=== PATIENT | female | born 1995 | race Caucasian/White ===

== ENCOUNTER 2020-11-02 10:35 | Outpatient (CLI) | payer OTHER ==
[~2020-11-02] VITALS: Ht 172.7 cm; Wt 124.1 kg
--- NOTE | 2020-11-02 10:40 | NUR ---
Presents to labor and delivery. States having some light color pinkish drainage. Assessment done, questions offered and answered.
[2020-11-02] MEDS ORDERED: PRENATAL TABLET PO (11:04)
[2020-11-02] MEDS ORDERED: ZYRTEC 10MG10 MG PO (11:05)
[2020-11-02] MEDS ORDERED: PRILOSEC10 MG PO (11:07)
[2020-11-02 11:15] VITALS: BP 139/93
--- NOTE | 2020-11-02 11:27 | NUR ---
Ambulates around in the room. States cramping gets stronger when up.
[2020-11-02 11:45] VITALS: BP 127/74; PULSE 79
[2020-11-02 12:15] VITALS: BP 131/79; PULSE 78
[2020-11-02 12:45] VITALS: BP 125/81; PULSE 86
--- NOTE | 2020-11-02 12:50 | NUR ---
Rests in bed, alert. Vag exam done. No change since previous. 1300 Discharge instructions given, verbalizes understanding. 1315 Dismissed to home.
== END 2020-11-02 13:15 | disposition home or self-care (01) ==
LOC: LDRO 10:35 → LDR 11:20 → LDRO 11:20 → LDR 13:15
DX: Z34.93 Encounter for supervision of normal pregnancy, unspecified, third trimester (principal); Z3A.40 40 weeks gestation of pregnancy
CPT/HCPCS: OP

== ENCOUNTER 2020-11-03 22:44 | Inpatient (IN) | payer OTHER ==
[~2020-11-03] VITALS: Ht 172.7 cm; Wt 124.1 kg
[~2020-11-03 22:44] MED LIST: PRENATAL TABLET PO; PRILOSEC10 MG PO; ZYRTEC 10MG10 MG PO
--- NOTE | 2020-11-03 23:00 | NUR ---
2300- PT PRESENTS TO LDR COMPLAINING OF CONTRACTIONS, AMBULATORY TO ROOM LR6, CHANGED INTO GOWN. 2308- EFM X2 APPLIED. PT STATES SHE HAS BEEN KARRIE SINCE YESTERDAY, BUT THEY ARE NOW MORE INTENSE. SHE DENIES LEAKING ANY FLUID OR HAVING VAGINAL BLEEDING. STATE SHE IS FEELING THE BABY MOVE. PLAN OF CARE FOR LABOR CHECK DISCUSSED AND QUESTIONS ANSWERED. 2315- SVE BY THIS NURSE 4-. 2320- NURSING ADMISSION HISTORY AND ASSESSMENT COMPLETE. ORAL HYDRATION PROVIDED. PT DENIES FURTHER NEEDS AT THIS TIME. 0008- PT UP TO BATHROOM. STATES HER CONTRACTIONS FEEL STRONGER. 0015- SVE BY THIS NURSE UNCHANGED. DISCUSSED AMBULATION AND FURTHER OBSERVATION FOR LABOR. PT AGREEABLE WITH THIS PLAN. 0022- PT OFF MONITOR TO AMBULATE. 0100- PT BACK TO BED AND EFM TRACING. PT STATES HER CONTRACTIONS ARE MORE PAINFUL AND SHE IS FEELING THEM IN HER BACK. REASSURANCE PROVIDED. 0120- SVE BY THIS NURSE . PT UPDATED ON POSSIBLE PLAN OF CARE AND WILL UPDATE DR ROLES. QUESTIONS ANSWERED. PT STATES SHE IS READY FOR AN EPIDURAL AT THIS TIME, AWARE NURSE WILL ASK DR ABOUT PAIN MANAGEMENT. 0124- DR ROLES CALLED CHARTED. ORDERS FOR ADMISSION AND EPIDURAL PLACEMENT. 0130- BEDSIDE REPORT TO RADHA Saez RN.
[2020-11-03 23:30] VITALS: BP 144/83; PULSE 88; TEMP 98
[2020-11-04] VITALS (41 sets, daily range): BP systolic 110–160; BP diastolic 55–89; PULSE 76–113; TEMP 97.8–98.5
--- NOTE | 2020-11-04 02:20 | NUR ---
PTS PRESENTS TO NURSES STATION AND STATES "MY WIFES WATER JUST BROKE," STATES SHE "HEARD AND FELT A POP" AND ALSO FELT "2 GUSHES OF FLUID." THIS NURSE ASSESSED BED PAD AND IS UNABLE TO FIND ANY FLUID. SVE AT THIS TIME AND NO FLUID NOTED ON GLOVE AT THIS TIME.
--- NOTE | 2020-11-04 02:37 | NUR ---
PT ASSISTED TO EDGE OF BED, CLAUDIA INNER LAYER SCRUBBER TENDER REVIEWS EPIDURAL PROCEDURE AND RISKS, PT AGREEABLE TO POC. ALL CONSENTS SIGNED. LR BOLUS INFUSING PER PROTOCOL. TEST DOSE @ 1017. PT TOLERATED PROCEDURE WELL.
--- NOTE | 2020-11-04 02:45 | NUR ---
[id number]: PT SITTING ON EDGE OF BED FOR EPIDURAL PLACEMENT, DIFFICULTY TRACING EFM/TOCO DUE TO MATERNAL POSITION AND HABITUS. CONTRACTIONS PALPATED Q2-3MIN THROUGHOUT THIS PROCEDURE
[2020-11-04 03:32] LABS: BASO % 0.2 % (0.0-2.0); EOS % 0.2 % (0-4.0); GRAN # 10.3 (1.4-6.5); GRAN % 81.3 % (42.2-75.2); HEMOGLOBIN 11.2 g/dl (12.5-16.0); LYMPH # 1.6 (1.2-3.4); LYMPH % 12.6 % (20.0-51.0); MEAN CELL VOLUME 88 fl (80.0-100.0); MEAN CORPUSCULAR HEMOGLOBIN 28 pg (27.0-31.0); MEAN CORPUSCULAR HGB CONC 31 g/dl (33.0-37.0); MEAN PLATELET VOLUME 11.1 fl (7.4-10.4); MONO # 0.6 (0.1-0.6); PLATELET COUNT 179 K/mm3 (130-400); RED BLOOD COUNT 4.06 M/mm3 (4.10-5.30)
[2020-11-04 03:33] LABS: HEMATOCRIT 35.7 % (37.0-47.0)
--- NOTE | 2020-11-04 06:24 | NUR ---
FHR decel noted. Ctx tracing intermittently, difficult to determine FHR decel onset. RN adjusting EFM. Will cont. to monitor.
--- NOTE | 2020-11-04 07:38 | NUR ---
0738- E C/0. Dr. Kaur updated. See physician notification. 0750-Patient begins to push with contractions with RN at bedside. 0840- Patient wedge right. Continues to push with contractions with RN at bedside. Strong maternal effort. Moves vertex. Slow progress. 0855- Closed knee pushing. 0952- Small crown noted with pushing. Dr. Kaur on unit and notified. Requested at bedside for delivery. 0955- Dr. Kaur to bedside for delivery. 0958- Spontaneous vaginal delivery of viable female infant. Nares and mouth bulb suctioned by Dr. Kaur. Mec fluid noted with delivery. Cord gases collected by Dr. Kaur. 1000- Cord clamped and cut by father of . Care of assumed by Shirley Bloom RN. 1003- Spontaneous and intact delivery of placenta. Pitocin to 333ml/hr per protocol. Straight cath by Dr. Kaur. Second degree perineal laceration repaired. 1015- [place] care provided, pads changed, and ice pack to perineum. Plan of care and safety precautions reviewed. Patient verbalizes understanding. Resting with call light within reach.
--- NOTE | 2020-11-04 08:08 | NUR ---
Roles at bedside. Reviews POC with pt and SO who verbalize understanding.
[2020-11-05 00:07] VITALS: BP 124/75; PULSE 89; TEMP 98.2
[2020-11-05 03:15] VITALS: BP 114/67; PULSE 92; TEMP 98.1
[2020-11-05 07:13] VITALS: BP 134/83; PULSE 81; TEMP 97.8
--- NOTE | 2020-11-05 08:35 | NUR ---
0899- This RN called blood bank to ask for Rhogam. records stated blood type as O-. Blood bank reported their type and screen from 11/04/20 at 0201 was O+. Requested them to come redraw to verify. 0905- Lab on unit to pt's bedside to redraw type and screen. 1005- Blood bank called back this RN to verify type and screen as O+. 1042- notified. See physician notification.
[2020-11-05] MEDS ORDERED: IBU600 MG PO (08:41)
--- NOTE | 2020-11-05 10:34 | NUR ---
Initial visit; Parents thanked Track Service Person for offering congratulations and God's blessings for the of their daughter. Track Service Person thanked family for choosing [facility].
[2020-11-05 16:00] VITALS: BP 137/68; PULSE 74; TEMP 98.1
[2020-11-05 19:30] VITALS: BP 123/67; PULSE 79; TEMP 98
[2020-11-06 08:25] VITALS: BP 139/80; PULSE 75; TEMP 98.2
== END 2020-11-06 10:15 | disposition home or self-care (01) | DRG 807 ==
LOC: LDRO 22:44 → LDR 22:44 → LDRO 11-04 01:36 → LDR 11-04 01:37 → OB 11-04 01:37 → LDR 11-04 01:38 → OB 11-04 12:15
PROVIDERS: ADMIT Obstetrics & Gynecology
PROC: 10E0XZZ Delivery of Products of Conception, External Approach (ICD-10-PCS; principal; 2020-11-04)
PROC: 0KQM0ZZ Repair Perineum Muscle, Open Approach (ICD-10-PCS; 2020-11-04)
DX: O99.214 Obesity complicating childbirth (principal); Z37.0 Single live birth; O77.0 Labor and delivery complicated by meconium in amniotic fluid; O70.1 Second degree perineal laceration during delivery; O48.0 Post-term pregnancy; Z3A.40 40 weeks gestation of pregnancy
CPT/HCPCS: OP; J2405; J2590; J7120

== ENCOUNTER → 2020-12-26 | Outpatient (CLI) | payer OTHER ==
[~2020-12-26] MED LIST changes: +IBU600 MG PO
--- NOTE | 2020-12-26 13:28 | NUR ---
Pt, Deborah Aguilar, presents for outpatient consult with almost 8 week old baby girl, Maribeth Aguilar, for a evaluation. Deborah states she feels like her milk supply is low. Symptoms include Maribeth eating every 1-2 hours, not napping, and irregular stools. Maribeth was born on [birth year] and weighed 8#15.2oz (4060 gms). Pt reports the following weights: 11/08/20: 8#4oz and 11/13/20: 8#5.5oz at Dr. Patel's office. 12/20/20: 9#10oz with [employer] Nurse. Today Maribeth weighs 9#10.3oz (4347 gms). Pt reports Maribeth has 6+ voids daily, and that stools are irregular, q 2-4 days, which was the same even when she was <6 weeks of age. At this feeding Maribeth is fussy upon arrival, which pt states is normal for her. She nurses bilaterally, but releases the breast several times throughout and gets fidgetty. After nursing Maribeth has a weight gain of 1.9oz (54 gms), which is about half of whats expected for her age and size. She is provided EBM by bottle after, drinking 2.5oz and seems content. Pt denies h/o polycycstic ovarian syndrome, thyroid, or other endocrine dysfunctions. She states her milk was slow to develop, taking 5 days and she never felt a sudden increase as engorgement is typically experienced. She also denies PP hemorrhage, but acknowledges she had red bleeding x5 weeks, then 3 days of suspected menstrual bleeding and now continues to have a yellow discharge. She just started oral control yesterday. contacts Dr. Natasha saldivar with report of low milk supply with unknown etiology, requesting feedback from Dr. Palacio's perspective. Maribeth does not appear to be tongue tied, but does have an upper lip teather. Discussed evaluation with a dentist. Pt collects 1 oz after pumping x15 minutes. POC: Three step feeding plan: , supplement 2-3 oz EBM or formula, followed by bilateral breastpumping. Information about herbal supplements also provided. F/U: with this LC, and with Dr. Patel on Jan 10, 2021. Questions invited and answered.
== END ==
LOC: LAC 13:05
DX: Z39.1 Encounter for care and examination of lactating mother (principal); Z71.89 Other specified counseling

== ENCOUNTER → 2020-12-31 | Outpatient (CLI) | payer OTHER ==
--- NOTE | 2020-12-31 13:25 | NUR ---
Pt, Deborah Phillipshe, presents for follow up outpatient consult with 8 week old baby girl, Maribeth Aguilar, to evaluate if she is able to get more milk from . Maribeth was born on [birth year] and weighed 8#1`5.2oz (4060 gms). At our previous consult (12/26/20) Maribeth weighed 9#10.3oz (4374 gms). Today Maribeth weighs 10#4.4oz 4660 gms), for a gain of 10oz in 5 days. Pt has been following the 3-step feeding plan with breast/bottle/pumping. Maribeth is getting about 2oz EBM or formula after . Pt reports Maribeth is more content, sleeping 3-4 hours, not fussy like she was prior to the increased feedings. Pt also reports pumping about 15-30ml after feedings, and if she is away for a feeding, pumping 90-120ml. Pt also reports she started having red bleeding again, advised to let Dr. Kaur know. After today, Maribeth has a weight gain of 2.6oz (74 gms), an increase from previous visit by 0.7oz. POC: Continue 3-step feeding plan, modify to pump and bottle feed if desired as 3 steps is time consuming. Continue herbal supplements and keep appt with Dr. Kaur for thyroid check. F/U: As scheduled with Dr. Parks, as needed with this LC. Questions invited and answered.
== END ==
LOC: LAC 12:54
DX: Z39.1 Encounter for care and examination of lactating mother (principal); Z71.89 Other specified counseling